=== PATIENT | female | born 1960 | race African-American/Black ===

== ENCOUNTER 2017-02-25 13:26 | Emergency (ER) | payer OTHER ==
[2017-02-25] MEDS ORDERED: Ibuprofen 200 MG TAB ONE (14:14)
--- NOTE | 2017-02-25 15:20 | RAD ---
THREE VIEWS LUMBAR SPINE: CLINICAL HISTORY: Fall with low back pain. FINDINGS: There is no compression fracture. Trace spondylolisthesis at L4-5 is present. There is multilevel facet osteoarthritis. Disk space heights are relatively well preserved within the lumbar spine. In cidental note of an ovoid calcific density of the pelvis, not further localized, as it is only visua lized on the frontal projection. IMPRESSION: 1. No acute compression fracture of the lumbar spine. 2. Additional details are described above. POS: [facility]
--- NOTE | 2017-02-25 15:21 | RAD ---
FRONTAL VIEW PELVIS: CLINICAL HISTORY: Fall with pain. FINDINGS: The hip joints are maintained bilaterally. There is scattered osseous degenerative change. There i s an ovoid calcific density projecting over the inferior aspect of the left sacrum, not further raj acterized. IMPRESSION: 1. No fracture of the pelvis. 2. Calcified density of the left hemipelvis, not further characterized on the basis of this exam. POS: [facility]
--- NOTE | 2017-02-25 15:24 | RAD ---
RIGHT RIBS AND PA CHEST 5 VIEWS: HISTORY: Rib injury. FINDINGS: There are no signs of fracture or evidence of pneumothorax. IMPRESSION: Negative right ribs. POS: [facility]
== END 2017-02-25 15:29 | disposition home or self-care (01) ==
LOC: NAV ERS 13:26
DX: S20.211A Contusion of right front wall of thorax, initial encounter (principal); S30.0XXA Contusion of lower back and pelvis, initial encounter; Z79.899 Other long term (current) drug therapy; W19.XXXA Unspecified fall, initial encounter; Y93.02 Activity, running
CPT/HCPCS: 72100; 72170

== ENCOUNTER 2017-04-10 11:11 | Emergency (ER) | payer BC ==
[2017-04-10] MEDS ORDERED: HYDROcodone/Acetaminophen 10/325 mg Tablet ONE (11:41)
[2017-04-10] MEDS ORDERED: Ibuprofen 800 MG TAB ONE (11:41)
== END 2017-04-10 12:00 | disposition home or self-care (01) ==
LOC: NAV ERS 11:11
DX: M17.12 Unilateral primary osteoarthritis, left knee (principal); W17.89XA Other fall from one level to another, initial encounter
CPT/HCPCS: 99283

== ENCOUNTER 2019-07-18 14:39 | Emergency (ER) | payer SELFPAY ==
--- NOTE | 2019-07-18 15:10 | RAD ---
XR Chest 1 View Portable HISTORY: Chest pain COMPARISON: 02/25/2017 FINDINGS: The heart size is normal. The lungs are well expanded without focal areas of consolidation, pneumothorax or pleural effusions. IMPRESSION: No radiographic evidence of acute cardiopulmonary process.
[2019-07-18 15:16] LABS: #Basophils 0.1 thou/uL (0.0-0.2); #Eosinphils 0.1 thou/uL (0.0-0.7); #Lymphocytes 2.6 thou/uL (1.20-3.40); #Monocytes 0.7 thou/uL (0.11-0.59); #Neutrophils 5.7 thou/uL (1.40-6.50); %Basophils 0.6 % (0.0-1.0); %Eosinophils 1.6 % (0.0-10.0); %Monocytes 7.4 % (0.0-10.0); %Neutrophils 62.4 % (42.0-75.0); Hemoglobin 14.2 g/dL (12.0-16.0); Mean Corpuscular HGB CONC 32.7 g/dL (32.0-36.0); Mean Corpuscular Hemoglobin 30.8 pg (27.0-31.0); Mean Corpuscular Volume 94.4 fL (78.0-98.0); Mean Platelet Volume 8.1 fL (7.4-10.4); Platelet Count 326 thou/uL (130-400); RBC Distribution Width 11.3 % (11.5-14.5); White Blood Cell (WBC) Count 9.2 thou/uL (4.8-10.8)
[2019-07-18 15:30] LABS: ALT (SGPT) 70 U/L (8-55); AST (SGOT) 45 U/L (5-34); Albumin 4.6 g/dL (3.5-5.0); Alkaline Phosphatase 152 U/L (40-110); Anion Gap 18 mmol/L (10-20); BUN (Urea Nitrogen) 21 mg/dL (9.8-20.1); Bilirubin, Total 0.4 mg/dL (0.2-1.2); Calc. Creatinine Clearance 0 mL/min (70-130); Calcium 9.4 mg/dL (7.8-10.44); Carbon Dioxide 22 mmol/L (22-29); Chloride 106 mmol/L (98-107); Estimated GFR-MDRD Greater than 90; Globulin 2.9 g/dL (2.4-3.5); Glucose 118 mg/dL (70-105); Potassium 3.7 mmol/L (3.5-5.1); Protein, Total 7.5 g/dL (6.0-8.3); Sodium 142 mmol/L (136-145)
== END 2019-07-18 16:40 | disposition home or self-care (01) ==
LOC: NAV ERS 14:39
DX: S29.011A Strain of muscle and tendon of front wall of thorax, initial encounter (principal); R94.5 Abnormal results of liver function studies; R74.8 Abnormal levels of other serum enzymes; X58.XXXA Exposure to other specified factors, initial encounter; Y92.000 Kitchen of unspecified non-institutional (private) residence as the place of occurrence of the external cause
CPT/HCPCS: 71045; 80053; 84484; 85025; 93005

== ENCOUNTER 2020-01-11 17:13 | Emergency (ER) | payer BC, OTHER ==
[2020-01-13 11:40] LABS: SARS-CoV-2 MS2 Positive; SARS-CoV-2 N Gene Positive; SARS-CoV-2 S Gene Positive; SARS-CoV-2 orf1ab Positive
== END 2020-01-11 18:30 | disposition home or self-care (01) ==
LOC: NAV ERS 17:13
DX: U07.1 COVID-19 (principal); J30.9 Allergic rhinitis, unspecified; E03.9 Hypothyroidism, unspecified; I10 Essential (primary) hypertension
CPT/HCPCS: 87635; 99283; U0003

== ENCOUNTER 2020-01-25 08:54 | Emergency (ER) | payer BC, OTHER ==
[2020-01-26 12:18] LABS: SARS-CoV-2 MS2 Positive; SARS-CoV-2 N Gene Positive; SARS-CoV-2 S Gene Positive; SARS-CoV-2 by NAA DETECTED (NotDetected); SARS-CoV-2 orf1ab Positive
== END 2020-01-25 09:57 | disposition home or self-care (01) ==
LOC: NAV ERS 08:54
DX: U07.1 COVID-19 (principal); E03.9 Hypothyroidism, unspecified; I10 Essential (primary) hypertension
CPT/HCPCS: 87635; 99283; U0003

== ENCOUNTER 2021-11-03 10:18 | Emergency (ER) | payer BC ==
[2021-11-03 11:10] LABS: #Eosinphils 0.1 thou/uL (0.0-0.7); #Lymphocytes 2.1 thou/uL (1.20-3.40); #Monocytes 0.5 thou/uL (0.11-0.59); #Neutrophils 6.5 thou/uL (1.40-6.50); %Basophils 0.4 % (0.0-1.0); %Eosinophils 1.4 % (0.0-10.0); %Lymphocytes 22.2 % (21.0-51.0); %Monocytes 5.6 % (0.0-10.0); %Neutrophils 70.4 % (42.0-75.0); Hemoglobin 13.4 g/dL (12.0-16.0); Manual Diff?? NO; Mean Platelet Volume 8.6 fL (7.4-10.4); Platelet Count 266 thou/uL (130-400); RBC Distribution Width 11.5 % (11.5-14.5); Red Blood Cell (RBC) Count 4.31 mill/uL (4.20-5.40); White Blood Cell (WBC) Count 9.3 thou/uL (4.8-10.8)
[2021-11-03 11:25] LABS: Sodium 144 mmol/L (136-145)
[2021-11-03 11:28] LABS: ALT (SGPT) 35 U/L (8-55); AST (SGOT) 33 U/L (5-34); Albumin 4.1 g/dL (3.5-5.0); Alkaline Phosphatase 129 U/L (40-110); Anion Gap 16 mmol/L (10-20); BUN (Urea Nitrogen) 15 mg/dL (9.8-20.1); Bilirubin, Total 0.6 mg/dL (0.2-1.2); Calc. Creatinine Clearance 0 mL/min (70-130); Calcium 9.4 mg/dL (7.8-10.44); Carbon Dioxide 25 mmol/L (22-29); Chloride 107 mmol/L (98-107); Globulin 2.9 g/dL (2.4-3.5); Glucose 111 mg/dL (70-105); Potassium 4.2 mmol/L (3.5-5.1)
[2021-11-03 11:55] LABS: Bilirubin Negative (Negative); Blood, Urine Small (Negative); Clarity Clear (Clear); Glucose, Urine (Dipstick) Negative (Negative); Ketone, Urine Trace mg/dL (Negative); Leukocyte Negative (Negative); Nitrite Negative (Negative); Protein, Urine (Dipstick) Negative (Neg-Trace); pH, Urine 5.5 (5.0-9.0)
[2021-11-03 11:56] LABS: Bacteria/HPF Rare-Few HPF (None Seen); RBC/HPF 0-3 HPF (0-3); Squamous Epithelial 0-3 HPF (0-3); WBC/HPF 0-3 HPF (0-3)
== END 2021-11-03 12:30 | disposition home or self-care (01) ==
LOC: NAV ERS 10:18
DX: R42 Dizziness and giddiness (principal); I10 Essential (primary) hypertension; R29.700 NIHSS score 0; E03.9 Hypothyroidism, unspecified; Z79.899 Other long term (current) drug therapy
CPT/HCPCS: 80053; 81003; 81015; 84443; 85025; 93005

== ENCOUNTER 2022-10-05 20:35 | Emergency (ER) | payer BC ==
[2022-10-05] MEDS ORDERED: Ketorolac Tromethamine 30 MG/ML VIAL ONE (21:05)
[2022-10-05] MEDS ORDERED: predniSONE 20 MG TAB ONE (21:05)
== END 2022-10-05 22:08 | disposition home or self-care (01) ==
LOC: NAV ERS 20:35
DX: M10.9 Gout, unspecified (principal); E03.9 Hypothyroidism, unspecified; I10 Essential (primary) hypertension; Z79.899 Other long term (current) drug therapy
CPT/HCPCS: 96372; 99283; J1885; J7512

== ENCOUNTER 2023-11-21 09:19 | Emergency (ER) | payer BC | END 2023-11-21 10:35 | disposition home or self-care (01) | LOC: NAV ERS 09:19 | DX: H91.93 Unspecified hearing loss, bilateral (principal) | CPT/HCPCS: 99283 ==

== ENCOUNTER 2025-06-21 05:35 | Emergency (ER) | payer BC ==
[2025-06-21 06:20] LABS: Hematocrit 42.0 % (36.0-47.0); Hemoglobin 14.6 g/dL (12.0-16.0); Mean Corpuscular Hemoglobin 31.6 pg (27.0-31.0); Mean Corpuscular Volume 90.6 fl (78.0-98.0); Platelet Count 279 10x3/uL (130-400); Red Blood Cell (RBC) Count 4.63 mill/uL (4.20-5.40); White Blood Cell (WBC) Count 9.5 10x3/uL (4.8-10.8)
[2025-06-21] MEDS ORDERED: Aspirin Chewable 81 MG TAB ONE (06:23)
[2025-06-21 06:29] LABS: ALT (SGPT) 41 U/L (Less than 34); AST (SGOT) 35 U/L (11-34); Albumin 3.8 g/dL (3.1-4.5); Alkaline Phosphatase 131 U/L (40-110); Anion Gap 15 mmol/L (10-20); BUN (Urea Nitrogen) 11 mg/dL (9.8-20.1); Bilirubin, Total 0.7 mg/dL (0.3-1.2); Calc. Creatinine Clearance 0 mL/min (70-130); Calcium 9.2 mg/dL (7.8-10.44); Carbon Dioxide 22 mmol/L (23-31); Chloride 110 mmol/L (98-107); Globulin 3.4 g/dL (2.4-3.5); Glucose 105 mg/dL (80-115); Potassium 3.9 mmol/L (3.5-5.1); Sodium 143 mmol/L (136-145)
[2025-06-21 06:33] LABS: Platelet Adequacy Comment Appears Adequate; Troponin I Less than 0.010 ng/mL (< 0.028)
[2025-06-21 09:42] LABS: Troponin I Less than 0.010 ng/mL (< 0.028)
== END 2025-06-21 10:15 | disposition home or self-care (01) ==
LOC: NAV ERS 05:35
DX: R06.02 Shortness of breath (principal); Z86.73 Personal history of transient ischemic attack (TIA), and cerebral infarction without residual deficits; I10 Essential (primary) hypertension; Z79.899 Other long term (current) drug therapy
CPT/HCPCS: 36415; 71045; 80053; 83880; 84484; 85025; 85379; 93005; 94760